=== PATIENT | female | born 1970 | race Caucasian/White ===

== ENCOUNTER 2018-03-24 12:31 | Emergency (ER) | payer OTHER ==
[~2018-03-24] VITALS: Ht 170.2 cm; Wt 111.1 kg
[2018-03-24 12:35] VITALS: BP 137/70
--- NOTE | 2018-03-24 12:38 | NUR ---
TO LOBBY A/W BED, JAY MURPHY NOTED
--- NOTE | 2018-03-24 15:30 | NUR ---
PT BIB SELF C/O R KNEE PAIN WORSENING OVER 1 WEEK. WAS SEEN AT [facility] 2 WEEKS AGO AND HAD XRAYS DONE AND WAS DISCHARGED. STATES SHE NEEDS PAIN MEDICATION BECAUSE SHE CAN'T GET INTO AN ORTHO APPOINTMENT UNTIL NEXT FRIDAY. PAIN 8/10 ACHING. +DP PULSES, CMS INTACT ON AFFECTED LEG. PT DENIES N/V/D; SKIN IS INTACT, PINK/WARM/DRY; AAOX4, PERRL, WITH UNSTEADY GAIT D/T KNEE PAIN; LUNGS CLEAR BL, BREATHING UNLABORED; HR EVEN AND REGULAR, BL PERIPHERAL PULSES PRESENT; BS ACTIVE X4, NO TENDERNESS TO PALPATION, NO HEPATOSPLENOMEGALLY PALPATED, RESONANT TO PERCUSSION; PT DENIES ANY FEVER, CP, SOB, OR COUGH AT THIS TIME; PT STATES 8/10 PAIN AT THIS TIME; VSS; PATIENT POSITIONED FOR COMFORT; HOB ELEVATED; BEDRAILS UP X2; BED DOWN.
--- NOTE | 2018-03-24 15:30 | NUR ---
PT AMBULATED TO BED 11
--- NOTE | 2018-03-24 16:03 | NUR ---
EDMD EVALUATING PT AT BEDSIDE
[2018-03-24] MEDS ORDERED: KETOROLAC 60 MG/2 ML VIAL IM ONE (16:05)
[2018-03-24 16:28] VITALS: BP 145/72
--- NOTE | 2018-03-24 16:31 | NUR ---
Patient discharged with v/s stable. Written and verbal after care instructions given and explained. Patient alert, oriented and verbalized understanding of instructions. Ambulatory with steady gait. All questions addressed prior to discharge. ID band removed. Patient advised to follow up with PMD. Rx of VOLTAREN XR given. Patient educated on indication of medication including possible reaction and side effects. Opportunity to ask questions provided and answered.
--- NOTE | 2018-03-24 16:36 | NUR ---
PLACED A KNEE IMMOBILIZER ON PT'S KNEE. PT ACCEPTED WITHOUT ISSUES.
== END 2018-03-24 16:31 | disposition home or self-care (01) ==
LOC: MED 12:31
DX: S86.811A Strain of other muscle(s) and tendon(s) at lower leg level, right leg, initial encounter (principal); F17.210 Nicotine dependence, cigarettes, uncomplicated; Z88.6 Allergy status to analgesic agent; Z88.5 Allergy status to narcotic agent; Z98.84 Bariatric surgery status; Z98.890 Other specified postprocedural states; X58.XXXA Exposure to other specified factors, initial encounter; Y93.89 Activity, other specified; Y92.89 Other specified places as the place of occurrence of the external cause; Y99.8 Other external cause status
CPT/HCPCS: 29505; 96372; 99283; J1885